=== PATIENT | female | born 1995 | race Caucasian/White ===

== ENCOUNTER 2017-02-12 19:03 | Emergency (ER) | payer BC, MEDICAID ==
--- NOTE | 2017-02-12 19:48 | ED Physician Chart ---
Chief Complaint/HPI - Patient Information Date Seen:: 02/12/17 Time Seen:: 19:10 Chief Complaint:: Epigastric pain since 9 am today. History of Present Illness:: Onset of abdominal pain at epigastric region since awakening at about 0900 today. Pain is characterized as intermittent, localized, and sharp. No fever. Pt had intermittent N/V with vomitus consists of gastric content. No hematemesis. Last BM at about 6:30 pm today, loose but nonbloody. No anorexia. No lightheadedness. No recent travel, antibiotic use, or ingestion of contaminated food or liquid. Epigastic pain may improve by lying down. No definite known aggravating or precipitating factors. Pt had greasy/spicy food and caffeinated beverages prior to onset of her epigasric symptoms. Denies tobacco, alcohol, ASA or NSAID's use. Allergies:: Allergies Allergy/AdvReac Type Severity Reaction Status Date / Time Penicillins Allergy Verified 02/12/17 19:17 Vitals:: Vital Signs - 8 hr 02/12/17 19:18 Temp 98.1 F HR 85 RR 16 BP 104/71 O2 Sat % 98 Historian:: Patient Family MD/PCP:: unknown LMP:: Now Review:: Nurse's Note Reviewed Review of Systems - Review of Systems General/Constitutional: No fever, No chills, No weight loss, No weakness, No diaphoresis, No edema, No loss of appetite Skin: No skin lesions, No rash, No bruising Head: No headache, No light-headedness Eyes: No loss of vision, No pain, No diplopia ENT: No earache, No nasal drainage, No sore throat, No tinnitus Neck: No neck pain, No swelling, No thyromegaly, No stiffness, No mass noted Cardio Vascular: No chest pain, No palpitations, No PND, No orthopnea, No edema Pulmonary: No SOB, No cough, No sputum, No wheezing GI: Nausea, Vomiting, Diarrhea (nonbloody loose stool), Pain, No melena, No hematochezia, No constipation, No hematemesis G/U: No dysuria, No frequency, No hematuria Assistant Facility Manager: No vaginal discharge, No abnormal vaginal bleed Musculoskeletal: No bone or joint pain, No back pain, No muscle pain Endocrine: No polyuria, No polydipsia Psychiatric: Prior psych history, No depression, No anxiety, No suicidal ideation, No homicidal ideation, No auditory hallucination, No visual hallucination Hematopoietic: No bruising, No lymphadenopathy Allergic/Immuno: No urticaria, No angioedema Neurological: No syncope, No focal symptoms, No weakness, No paresthesia, No headache, No seizure, No dizziness, No confusion, No vertigo Past Medical History - Past Medical History Past Medical History: No significant medical hx Family History: Diabetes Melitus, Cancer Social History: Non Smoker, Alcohol (occasional), No Drug Use, Single, Lives With Parents, 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 Surgical History: None Psychiatricy History: Depression Medication: Reviewed Physical Exam - Physical Examination General/Constitutional: Awake, Well-developed, well-nourished, Alert, No distress, GCS 15, Non-toxic appearing, Ambulatory Other Gen/Cons comments:: Breathes comfortably, speaks clearly, and ambulates without difficulty. Head: Atraumatic Eyes: Lids, conjuctiva normal, PERRL, EOMI Other Eyes comments:: Anicteric sclera. Skin: Nl inspection, No rash, No skin lesions, No ecchymosis, Well hydrated, No lymphadenopathy ENMT: External ears, nose nl, Nasal exam nl, Lips, teeth, gums nl, Oropharynx nl , Tonsils nl Neck: Nontender, Full ROM w/o pain, No nuchal rigidity, No mass, No stridor Respiratory: Nl effort/Exclusion, Clear to Auscultation, No Wheeze/Rhonchi/Rales Cardio Vascular: RRR, No murmur, gallop, rubs, NL S1 S2 GI: No organomegaly, No hernia, Normal BS's, Nondistended, No mass/bruits, No McBurney tenderness Other GI comments:: Mild tenderness at epigastric region. No R/G. : No CVA tenderness Extremities: No edema Neuro/Psych: Alert/oriented (oriented x 3), Judgement/insight normal, Mood normal, Normal gait, No focal deficits Labs/Radiology/EKG Results - Lab Results Results: Laboratory Tests 02/12/17 02/12/17 02/12/17 20:05 20:08 20:08 WBC 11.1 H RBC 4.57 Hgb 14.2 Hct 40.9 MCV 89.5 MCH 31.0 MCHC Differential 34.6 RDW 12.5 Plt Count 228 MPV 8.2 Band Neutrophils % 3 Neutrophils (Manual) 81 H Lymphocytes 8 L Monocytes 8 Platelet Estimate ADEQUATE Platelet Morphology NORMAL RBC Morph Micro Appear NORMAL Sodium 138 Potassium 3.4 L Chloride 108 H Carbon Dioxide 23.1 Anion Gap 10.3 BUN 13 Creatinine 0.5 L Est GFR ( Amer) > 60.0 Est GFR (Non-Af Amer) > 60.0 BUN/Creatinine Ratio 26.0 Glucose 99 Calcium 9.3 Total Bilirubin 0.4 AST 64 H ALT 147 H Alkaline Phosphatase 78 Total Protein 7.9 Albumin 4.1 Globulin 3.8 Albumin/Globulin Ratio 1.1 Amylase 37 Lipase 15 Urine Test NEGATIVE Laboratory Last Values WBC 8.5 Th/cmm (4.8-10.8) D 02/13/17 01:05 RBC 4.39 Mil/cmm (3.80-5.10) 02/13/17 01:05 Hgb 13.3 gm/dL (11.7-15.5) 02/13/17 01:05 Hct 39.0 % (35.0-45.0) 02/13/17 01:05 MCV 88.9 fl (81-100) 02/13/17 01:05 MCH 30.4 pg (27.0-31.0) 02/13/17 01:05 MCHC Differential 34.2 pg (28.0-36.0) 02/13/17 01:05 RDW 12.1 % (11.5-20.0) 02/13/17 01:05 Plt Count 199 Th/cmm (150-400) 02/13/17 01:05 MPV 8.1 fl 02/13/17 01:05 Neutrophils % 81.2 % (40.0-80.0) H 02/13/17 01:05 Band Neutrophils % 3 % (0-10) 02/12/17 20:08 Lymphocytes % 10.5 % (20.0-50.0) L 02/13/17 01:05 Monocytes % 7.1 % (2.0-10.0) 02/13/17 01:05 Eosinophils % 0.9 % (0.0-5.0) 02/13/17 01:05 Basophils % 0.3 % (0.0-2.0) 02/13/17 01:05 Neutrophils (Manual) 81 % (40-80) H 02/12/17 20:08 Lymphocytes 8 % (20-50) L 02/12/17 20:08 Monocytes 8 % (2-10) 02/12/17 20:08 Platelet Estimate ADEQUATE (NORMAL) 02/12/17 20:08 Platelet Morphology NORMAL (NORMAL) 02/12/17 20:08 RBC Morph Micro Appear NORMAL (NORMAL) 02/12/17 20:08 Sodium 138 mEq/L (136-145) 02/12/17 20:08 Potassium 3.4 mEq/L (3.5-5.1) L 02/12/17 20:08 Chloride 108 mEq/L (98-107) H 02/12/17 20:08 Carbon Dioxide 23.1 mEq/L (21.0-31.0) 02/12/17 20:08 Anion Gap 10.3 (7.0-16.0) 02/12/17 20:08 BUN 13 mg/dL (7-25) 02/12/17 20:08 Creatinine 0.5 mg/dL (0.6-1.2) L 02/12/17 20:08 Est GFR ( Amer) > 60.0 ml/min (>90) 02/12/17 20:08 Est GFR (Non-Af Amer) > 60.0 ml/min 02/12/17 20:08 BUN/Creatinine Ratio 26.0 02/12/17 20:08 Glucose 99 mg/dL (70-105) 02/12/17 20:08 Calcium 9.3 mg/dL (8.6-10.3) 02/12/17 20:08 Total Bilirubin 0.4 mg/dL (0.3-1.0) 02/12/17 20:08 AST 64 U/L (13-39) H 02/12/17 20:08 ALT 147 U/L (7-52) H 02/12/17 20:08 Alkaline Phosphatase 78 U/L (34-104) 02/12/17 20:08 Total Protein 7.9 gm/dL (6.0-8.3) 02/12/17 20:08 Albumin 4.1 gm/dL (3.7-5.3) 02/12/17 20:08 Globulin 3.8 gm/dL 02/12/17 20:08 Albumin/Globulin Ratio 1.1 (1.0-1.8) 02/12/17 20:08 Amylase 37 U/L (29-103) 02/12/17 20:08 Lipase 15 U/L (11-82) 02/12/17 20:08 Urine Test NEGATIVE 02/12/17 20:05 - Radiology Results Results: Abdominal sonogram (Preliminary report): No significant findings. Abdominal/pelvic CT without contrast: No bowel obstruction. No appendicitis or other inflammatory changes of bowel. Pancreas and gallbladder are grossly unremarkable. No renal calculi. No hydronephrosis. No free air or free fluid. No other acute disease. Official report per Dr. Marcus Humphrey, radiologist. ED Septic Shock - . Is Septic Shock (SBP<90, OR Lactate>4 mmol\L) present?: No - <6hrs of presentation: Vital Signs: Vital Signs - 8 hr 02/12/17 19:18 Temp 98.1 F HR 85 RR 16 BP 104/71 O2 Sat % 98 Reassessment (Disposition) - Reassessment Reassessment:: 2044 Pt remains stable but she feels nauseated; thus, Zofran 4 mg IV is to be given. Lab findings have been reviewed with pt. Abdominal sonogram is pending. 2258 Pt overall remains stable. Her abdominal pain has improved. Her repeat VS shows low grade temp of 100.1F. Abdominal sonogram just became available which shows no significant findings. Lab and sonographic findings have been reviewed with pt. Abdominal/pelvic CT ordered. 0140 Pt continues to improve. Pt denies any abdominal pain. No recurrent N/V/D. Pt ambulates without difficulty. Repeat CBC reveals WBC count has normalized to 8.[address] report just became available. Lab, sonographic and CT findings have been reviewed pt. Management plan has been discussed. Pt requests to go home now and does not want further observation/management in hospital. Pt states she will follow with her PCP tomorrow. Aftercare instructions have been given. Reassessment Condition:: Improved - Diagnosis Diagnosis:: Viral gastroenteritis, stable and improved. Acute gastritis, stable and currently asymptomatic. - Aftercare/Follow up Instructions Aftercare/Follow-Up Instructions:: Refer to Discharge Instructions Notes:: Clear liquid diet today. Bedrest. Increase oral fluid. Increase oral intake of potassium rich foodstuff/liquid. Avoid greasy/spicy food, caffeine, alcohol, ASA, NSAID, etc. Abdominal pain instructions given. May take Tylenol 500 mg tab one tab po q6h prn pain or fever. F/U with Dr. Galdamez or PCP of pt's choice in one day for recheck and repeat lab study: CBC, CMP. Return to ER immediately if condition worsens or if any further questions/problems. Medication Prescribed:: Ranitidine 150 mg tab one tab po q12h D-20 R-0 - Patient Disposition Discharge/Transfer:: Home Time:: 01:50 Condition at Disposition:: Stable, Improved
[2017-02-12 20:16] LABS: HEMATOCRIT 40.9 % (35.0-45.0); HEMOGLOBIN 14.2 gm/dL (11.7-15.5); MEAN CELL VOLUME 89.5 fl (81-100); MEAN CORPUSCULAR HGB CONC 34.6 pg (28.0-36.0); MEAN PLATELET VOLUME 8.2 fl; PLATELET COUNT 228 Th/cmm (150-400); RED BLOOD COUNT 4.57 Mil/cmm (3.80-5.10); RED CELL DISTRIBUTION WIDTH 12.5 % (11.5-20.0); WHITE BLOOD COUNT 11.1 Th/cmm (4.8-10.8)
[2017-02-12 20:32] LABS: ALB/GLOB RATIO 1.1 (1.0-1.8); ALKALINE PHOSPHATASE 78 U/L (34-104); AMYLASE SERUM 37 U/L (29-103); ANION GAP 10.3 (7.0-16.0); BAND NEUTROPHILE 3 % (0-10); BILIRUBIN,TOTAL 0.4 mg/dL (0.3-1.0); BUN - UREA NITROGEN 13 mg/dL (7-25); CALCIUM SERUM 9.3 mg/dL (8.6-10.3); CARBON DIOXIDE 23.1 mEq/L (21.0-31.0); CHLORIDE 108 mEq/L (98-107); CREATININE - SERUM 0.5 mg/dL (0.6-1.2); GLUCOSE 99 mg/dL (70-105); LIPASE 15 U/L (11-82); NEUTROPHILS 81 % (40-80); PLATELET ESTIMATE ADEQUATE (NORMAL); PLATELET MORPHOLOGY NORMAL (NORMAL); POTASSIUM SERUM 3.4 mEq/L (3.5-5.1); SGOT 64 U/L (13-39); SGPT/ALT 147 U/L (7-52); SODIUM SERUM 138 mEq/L (136-145); TOTAL CELLS COUNTED 100
[2017-02-12] MEDS ORDERED: Potassium Chloride 20 mEq ER Tab PO ONE ×2 (20:45→20:48)
[2017-02-13 01:10] LABS: % BASOPHILS 0.3 % (0.0-2.0); % EOSINOPHILS 0.9 % (0.0-5.0); % LYMPHOCYTES 10.5 % (20.0-50.0); % MONOCYTES 7.1 % (2.0-10.0); % NEUTROPHILS 81.2 % (40.0-80.0); HEMOGLOBIN 13.3 gm/dL (11.7-15.5); MEAN CELL VOLUME 88.9 fl (81-100); MEAN CORPUSCULAR HEMOGLOBIN 30.4 pg (27.0-31.0); MEAN CORPUSCULAR HGB CONC 34.2 pg (28.0-36.0); MEAN PLATELET VOLUME 8.1 fl; NEUTROPHILE ABSOLUTE 6.9 Th/cmm (1.8-8.0); PLATELET COUNT 199 Th/cmm (150-400); RED BLOOD COUNT 4.39 Mil/cmm (3.80-5.10); RED CELL DISTRIBUTION WIDTH 12.1 % (11.5-20.0)
[2017-02-13 01:13] LABS: WHITE BLOOD COUNT 8.5 Th/cmm (4.8-10.8)
--- NOTE | 2017-02-13 08:02 | Diagnostic Imaging Report ---
CT scan of the abdomen and pelvis without intravenous contrast History: Pain Total DLP equals 417 CTDI equals 9.0 Axial sections were obtained from the xiphoid process down to the pubic symphysis. The liver demonstrates a normal size and contour. No focal lesions are seen. The spleen appears normal. No abnormalities are seen in the region of the pancreas. The kidneys appear normal bilaterally. The exam of the pelvis demonstrates preservation of normal fat planes. No abnormal soft tissue masses. No abnormal fluid collections. Impression: Negative examination
--- NOTE | 2017-02-13 08:14 | Diagnostic Imaging Report ---
Abdominal ultrasound HISTORY: Pain The liver exhibits a homogeneous parenchyma. No focal lesions. The gallbladder appears normal. No calculi are seen. No biliary dilatation. No abnormalities are seen in the region of the pancreas. The kidneys appear normal bilaterally. No other retroperitoneal or intra-abdominal abnormalities. IMPRESSION: Negative examination
== END 2017-02-13 02:21 | disposition home or self-care (01) ==
LOC: ER 19:03
DX: A08.4 Viral intestinal infection, unspecified (principal); K29.00 Acute gastritis without bleeding; Z88.0 Allergy status to penicillin
CPT/HCPCS: 99285; 96374; 96375; 76700; 74176; 36415 ×2; 85007; 85027; 85025; 82150; 81025; 83690; 80053; J2405; J3490